=== PATIENT | male | born 1950 | race Caucasian/White ===

== ENCOUNTER 2023-10-18 17:27 | Emergency (ER) | payer MEDICARE, OTHER ==
[2023-10-18] MEDS: Sodium Chloride 0.9% 10 ML Syringe FLUSH PRN (17:52)
[2023-10-18] MEDS: Sodium Chloride 0.9% 2.5 ML Syringe FLUSH PRN (17:52)
[2023-10-18] MEDS: Sodium Chloride 0.9% 1,000 ML IV STA (17:52)
[2023-10-18 17:56] LABS: BASOPHILS ABSOLUTE AUTO 0.09 K/uL (0.00-0.20); BASOPHILS PERCENT AUTO 0.8 % (0.0-1.0); EOSINOPHILS ABSOLUTE AUTO 0.26 K/uL (0.00-0.45); EOSINOPHILS PERCENT AUTO 2.3 % (0.0-6.0); HEMATOCRIT 48.1 % (42.0-52.0); HEMOGLOBIN 16.6 g/dL (14.0-18.0); IMMATURE GRAN ABSOLUTE AUTO 0.04 K/uL (0.00-0.05); IMMATURE GRAN PERCENT AUTO 0.4 % (0.0-0.4); LYMPHOCYTES ABSOLUTE AUTO 2.66 K/uL (1.00-4.80); LYMPHOCYTES PERCENT AUTO 23.4 % (24.0-44.0); MEAN CORPUSCULAR HEMOGLOBIN 30.7 pg (28.0-32.0); MEAN CORPUSCULAR HGB CONC 34.5 g/dL (32.0-36.0); MEAN CORPUSCULAR VOLUME 89.1 fL (83.0-99.0); MEAN PLATELET VOLUME 11.1 fL (9.4-12.4); MONOCYTES ABSOLUTE AUTO 0.66 K/uL (0.00-0.80); MONOCYTES PERCENT AUTO 5.8 % (0.0-8.0); NEUTROPHILS ABSOLUTE AUTO 7.66 K/uL (1.80-7.70); NEUTROPHILS PERCENT AUTO 67.3 % (41.0-71.0); PLATELET COUNT,PLT 206 K/uL (150-400); WHITE BLOOD CELL COUNT,WBC 11.37 K/uL (3.9-11.3)
[2023-10-18 18:32] LABS: A/G RATIO 1.2 (0.9-1.6); ALBUMIN 4.1 g/dL (3.4-5.0); BILIRUBIN TOTAL 0.4 mg/dL (0.2-1.0); CALCIUM 9.4 mg/dL (8.5-10.1); CARBON DIOXIDE,CO2 18.3 mmol/L (21.0-32.0); CREATININE 1.3 mg/dL (0.8-1.3); EST CRCL DRUG DOSING (CG) 51.36 mL/min; POTASSIUM,K 3.8 mmol/L (3.5-5.1); PROTEIN TOTAL,TP 7.4 g/dL (6.4-8.2)
[2023-10-18 18:37] LABS: MAGNESIUM 2.9 mg/dL (1.8-2.4)
== END 2023-10-18 20:37 | disposition home or self-care (01) ==
LOC: MW.ED 17:27
DX: R56.9 Unspecified convulsions (principal)
CPT/HCPCS: 36415; 70450; 80053; 83690; 83735; 84484; 85025; 96361; 96374; 99285; J1953; J3490; J7030; J7060; 93010; 99283

== ENCOUNTER 2023-12-20 15:03 | Emergency (ER) | payer OTHER, MEDICARE ==
[2023-12-20] MEDS: Sodium Chloride 0.9% 2.5 ML Syringe FLUSH PRN (15:21)
[2023-12-20] MEDS: Sodium Chloride 0.9% 10 ML Syringe FLUSH PRN (15:21)
[2023-12-20 15:23] LABS: BASOPHILS ABSOLUTE AUTO 0.09 K/uL (0.00-0.20); BASOPHILS PERCENT AUTO 0.9 % (0.0-1.0); EOSINOPHILS ABSOLUTE AUTO 0.24 K/uL (0.00-0.45); EOSINOPHILS PERCENT AUTO 2.5 % (0.0-6.0); HEMOGLOBIN 16.1 g/dL (14.0-18.0); IMMATURE GRAN ABSOLUTE AUTO 0.04 K/uL (0.00-0.05); IMMATURE GRAN PERCENT AUTO 0.4 % (0.0-0.4); LYMPHOCYTES ABSOLUTE AUTO 1.98 K/uL (1.00-4.80); LYMPHOCYTES PERCENT AUTO 20.4 % (24.0-44.0); MEAN CORPUSCULAR HEMOGLOBIN 30.2 pg (28.0-32.0); MEAN CORPUSCULAR HGB CONC 34.3 g/dL (32.0-36.0); MEAN CORPUSCULAR VOLUME 88.2 fL (83.0-99.0); MEAN PLATELET VOLUME 11.4 fL (9.4-12.4); MONOCYTES ABSOLUTE AUTO 0.66 K/uL (0.00-0.80); MONOCYTES PERCENT AUTO 6.8 % (0.0-8.0); NEUTROPHILS ABSOLUTE AUTO 6.71 K/uL (1.80-7.70); PLATELET COUNT,PLT 175 K/uL (150-400); RED BLOOD CELL COUNT 5.33 M/uL (4.52-5.90); WHITE BLOOD CELL COUNT,WBC 9.72 K/uL (3.9-11.3)
[2023-12-20 15:46] LABS: A/G RATIO 1.1 (0.9-1.6); ALBUMIN 4.2 g/dL (3.4-5.0); BILIRUBIN TOTAL 0.7 mg/dL (0.2-1.0); CALCIUM 9.5 mg/dL (8.5-10.1); CARBON DIOXIDE,CO2 25.2 mmol/L (21.0-32.0); CREATININE 1.3 mg/dL (0.8-1.3); EST CRCL DRUG DOSING (CG) 53.03 mL/min
[2023-12-20] MEDS: amLODIPine 5 MG Tab PO ONE (16:36)
== END 2023-12-20 16:55 | disposition home or self-care (01) ==
LOC: MW.ED 15:03
DX: I10 Essential (primary) hypertension (principal); Z79.899 Other long term (current) drug therapy; Z86.16 Personal history of COVID-19; Z75.8 Other problems related to medical facilities and other health care
CPT/HCPCS: 36415; 80053; 85025; 99283; A9270; J3490

== ENCOUNTER 2024-01-12 06:47 | Day surgery (SDC) | payer OTHER, MEDICARE ==
[2024-01-12] MEDS: Lactated Ringers 1,000 ML IV SCH (07:12)
[2024-01-12] MEDS ORDERED: propofoL 50 ML ONE (07:20)
[2024-01-12] MEDS ORDERED: Phenylephrine HCl In 0.9% NaCl 1 MG/10 ML Syringe ONE (08:09)
[2024-01-12] MEDS ORDERED: ePHEDrine 50 MG/ML SDV ONE (08:20)
[2024-01-12] MEDS ORDERED: Lactated Ringers 1,000 ML IV SCH (09:00)
== END 2024-01-12 09:20 | disposition home or self-care (01) ==
LOC: MW.SDS 06:47
PROVIDERS: ATTEND Surgery
DX: Z12.11 Encounter for screening for malignant neoplasm of colon (principal); I10 Essential (primary) hypertension; E78.00 Pure hypercholesterolemia, unspecified; G40.409 Other generalized epilepsy and epileptic syndromes, not intractable, without status epilepticus; Z87.891 Personal history of nicotine dependence; Z79.899 Other long term (current) drug therapy
CPT/HCPCS: 45380; 45381; 45385; 88305; J2371; J2704; J7120; 00811; 99100; J3490